=== PATIENT | female | born 1945 | race Caucasian/White ===

== ENCOUNTER 2022-12-11 09:42 | Outpatient (OUT) | payer MEDICARE, SELFPAY ==
--- NOTE | 2022-12-11 10:16 | XR_ITS ---
The [address] [address] Patient Name: TIFFANIE TRIVEDI MRN: [id number] date: 1945 Sex: F Assigned Patient Location: [facility] Current Patient Location: [facility] Accession/Order Number: [id number] Exam Date: 12/11/2022 10:20 Report Date: 12/12/2022 22:49 At the request of: ANÍBAL DAWN Procedure: XR thoracic spine 3V EXAM: XR thoracic spine 3V HISTORY: M54.6 COMPARISON: None. TECHNIQUE: AP and lateral views FINDINGS: Vertebral bodies are normal in height. There is disc space narrowing at mid and lower thoracic levels with early anterior and lateral osteophytosis. Angles are intact. XR/XR thoracic spine 3V IMPRESSION: Multilevel thoracic spondylosis. No evidence for acute fracture or traumatic malalignment. Electronically authenticated by: Damaris GUADARRAMA Date: 12/12/2022 22:49
== END 2022-12-11 09:43 | disposition home or self-care (01) ==
PROVIDERS: PCP Family Medicine; Visit Provider Family Medicine
DX: M47.814 Spondylosis without myelopathy or radiculopathy, thoracic region (principal); M54.6 Pain in thoracic spine
CPT/HCPCS: 72072

== ENCOUNTER 2022-12-18 10:34 | Emergency (ER) | payer MEDICARE, SELFPAY ==
[2022-12-18 10:47] VITALS: BP 174/65; PULSE 66; RESP 18; TEMP 37.1; O2SAT 98; BMI 19.4
[2022-12-18 11:28] LABS: Basophils Percent Auto 0.7 % (0.2-2.0); Eosinophils Percent Auto 0.2 % (0.9-7.0); Hematocrit 42.3 % (36.0-48.0); Hemoglobin 14.2 g/dL (12.0-16.0); Immature Granulocytes Abs Auto 0.02 10^3/uL (0.00-0.03); Immature Granulocytes Pct Auto 0.3 % (0.0-0.5); Lymphocytes Percent Auto 17.4 % (20.5-60.0); Mean Corpuscular HGB Conc 33.6 g/dL (29.9-35.2); Mean Corpuscular Hemoglobin 29.3 pg (26.7-34.0); Mean Corpuscular Volume 87.4 fL (81.0-99.0); Mean Platelet Volume 9.8 fL (9.5-13.5); Monocytes Absolute Auto 0.5 10^3/uL (0.3-0.8); Monocytes Percent Auto 8.2 % (1.7-12.0); Neutrophils Absolute Auto 4.2 10^3/uL (1.4-6.5); Neutrophils Percent Auto 73.2 % (43.0-75.0); Platelet Count 250 10^3/uL (150-450); Red Blood Count 4.84 10^6/uL (4.20-5.40); Red Cell Distribution Width 13.4 % (11.0-15.0); White Blood Count 5.8 10^3/uL (4.0-11.0)
[2022-12-18 11:58] LABS: Alanine Aminotransferase 21 U/L (14-59); Albumin Globulin Ratio 1.2; Albumin Level 4.2 g/dL (3.4-5.0); Alkaline Phosphatase 74 U/L (46-116); Aspartate Amino Transferase 12 U/L (15-37); BUN Creatinine Ratio 25.7; Bilirubin Total 0.4 mg/dL (0.2-1.0); Calcium 8.9 mg/dL (8.5-10.1); Carbon Dioxide 24.6 mmol/L (21.0-32.0); Chloride 99 mmol/L (98-107); Estimated GFR (African America >60 (>=60); Estimated GFR (Non-African Ame >60 (>=60); Globulin 3.6 g/dL; Glucose 148 mg/dL (74-106); Potassium 4.6 mmol/L (3.5-5.1); Sodium 133 mmol/L (136-145); Total Protein 7.8 g/dL (6.4-8.2)
[2022-12-18 13:00] LABS: Bilirubin Urine NEGATIVE (NEGATIVE); Blood Urine NEGATIVE (NEGATIVE); Clarity Urine CLEAR (CLEAR); Color Urine LT. YELLOW (YELLOW); Glucose Urine UA NEGATIVE (NEGATIVE); Ketones Urine NEGATIVE (NEGATIVE); Leukocyte Esterase Urine NEGATIVE (NEGATIVE); Nitrite Urine NEGATIVE (NEGATIVE); Protein Urine NEGATIVE (NEG/TRACE); Urobilinogen Urine 0.2 EU/dL (0.2-1.0); pH Urine 5.5 (5.0-9.0)
--- NOTE | 2022-12-18 13:11 | ED_ITS ---
HPI - General Adult General Chief complaint: Extremity Problem, Nontraumatic Stated complaint: TINGLING IN BOTH LEGS Time Seen by Provider: 12/18/22 12:45 Source: patient Mode of arrival: walk-in Limitations: no limitations History of Present Illness HPI narrative: Patient is a 77-year-old female who is presenting to the Emergency Room with chief complaint of intermittent muscle and calf cramping at nighttime when she sleeping along with restless leg syndrome. Patient is at bedside. Patient states for the past 2-3 weeks, she will have intermittent muscle cramping in her Nighttime Awakening Her up. Patient Gets up Often at Nighttime to Urinate, She Does Not Urinate during the Day. Patient Also Has Intermittent Restless Leg Syndrome at Nighttime As WellVital Signs reviewed and noted to be within normal limits. the patient is not hypoxic.Patient Has No Acute Injury. Patient States That She Does Not Check His Much Water in the Day She Needs to. Patient has no strokelike signs or symptoms. Patient has no chest pain or shortness of breath. Patient did see Dr. Thornton approximately one week ago, patient says that she mention the symptoms to Dr. Thornton, and Dr. Thornton did not mention any type of plantar testing that could be done for the symptoms. Pt says that she had a iron infusion about 4 or [address] Thornton noted that she had some hardening and changing of her nails. Patient is not had her iron levels checked since then. Education was done at bedside in the area of iron deficiency tingling to restless leg syndrome possibly. Patient had no fall, trauma. Patient is very active, no bowel pain, nausea, vomiting, diarrhea, or any acute complaints. Musculoskeletal: No evidence of deformity to the There is swelling. There is ecchymosis. No erythema is noted. DP and PT pulses are intact 2+. Normal sensation, normal capillary refill less than 2 seconds. There is no cyanosis or mottling noted. The patient has tenderness to . No tenderness noted to the 5th MT, midfoot, or proximal fibular area. There is no pain with calcaneal squeeze, achilles tendon is intact and no defect is palpated. No unilateral swelling. No pain to palpation to the posterior aspects of bilateral lower extremities. Neurological: alert and orient x4, normal sensory and motor observed. NIH 0 Psychiatric: Cooperative . All systems are negative except as noted/marked. All systems reviewed and ot herwise negative. . Nurses note and vital signs reviewed and patient is not hypoxic. General: The patient appears well and in no apparent distress. Patient is resting comfortably on cart. Patient is not toxic, lethargic, or listless Skin: Warm, dry, no pallor noted. There is no rash noted. No petechiae, purpura. Head: Normocephalic, atraumatic Eye: Normal conjunctiva, no drainage, EOMI. PERRL Ears, Nose, Mouth, and Throat: oral mucosa is moist. Nares patent. Mouth without vesicles. Cardiovascular: Regular Rate and Rhythm, no murmur, gallop, rub Respiratory: Patient is in no distress, no accessory muscle use, lungs are clear to auscultation, no wheezing, rales or rhonchi Back: non-tender, no CVA tenderness bilaterally to percussion. No CT LS midline pain GI: soft, no tenderness to palpation, no masses appreciated. No rebound, guarding, or rigidity noted. No flank pain bilateral, No distention Musculoskeletal: Patient has full range of motion of all of the extremities, no motor, sensory, or focal neurological deficit. See above muscle skeletal exam as well. Neurological: A&O x3, normal speech Psychiatric: Cooperative Related Data Home Medications Medication Instructions Recorded Confirmed aspirin 81 mg chewable tablet 81 mg PO DAILY 12/18/22 12/18/22 (Children's Aspirin) losartan 50 mg tablet 50 mg PO QDAY 12/18/22 12/18/22 Allergies Allergy/AdvReac Type Severity Reaction Status Date / Time No Known Drug Allergies Allergy Verified 12/18/22 10:47 Exam Constitutional Vital Signs, click to edit/add: Last Vital Signs Temp 98.7 F 12/18/22 10:47 Pulse 66 12/18/22 10:47 Resp 18 12/18/22 10:47 BP 174/65 H 12/18/22 10:47 Pulse Ox 98 12/18/22 10:47 O2 Del Method Room Air 12/18/22 10:47 Course Vital Signs Vital signs: Vital Signs Temperature 98.7 F 12/18/22 10:47 Pulse Rate 66 12/18/22 10:47 Respiratory Rate 18 12/18/22 10:47 Blood Pressure 174/65 H 12/18/22 10:47 Pulse Oximetry 98 12/18/22 10:47 Oxygen Delivery Method Room Air 12/18/22 10:47 Temperature 98.7 F 12/18/22 10:47 Pulse Rate 66 12/18/22 10:47 Respiratory Rate 18 12/18/22 10:47 Blood Pressure 174/65 H 12/18/22 10:47 Pulse Oximetry 98 12/18/22 10:47 Oxygen Delivery Method Room Air 12/18/22 10:47 Medical Decision Making MDM Narrative Medical decision making narrative: Patient was very thankful for time spent at bedside with education and dehydration, recommendations of using Powerade, Gatorade, and also stretching, exercise, and increasing water. Patient is aware that she needs to have her iron levels checked again by Dr. Thornton is an outpatient additional therapy if needed. Patient and are very thankful. Patient did leave before her discharge papers were given to her. I told the patient I be very clear in all the different things discussed at bedside on her discharge papers, for unknown reason she left without treatment being completed without having her discharge papers but she did verbally understand the plan as did her . Patient is a 30 taking multivitamins daily. Patient is aware of her sodium levels at 133 and will increase salt in Gatorade in her diet. Pt has limited salt for years and her diet. Lab Data Lab results reviewed: Yes I reviewed the patient's lab results Labs: Lab Results 12/18/22 12/18/22 Range/Units 11:12 12:50 WBC 5.8 (4.0-11.0) 10^3/uL RBC 4.84 (4.20-5.40) 10^6/uL Hgb 14.2 (12.0-16.0) g/dL Hct 42.3 (36.0-48.0) % MCV 87.4 (81.0-99.0) fL MCH 29.3 (26.7-34.0) pg MCHC 33.6 (29.9-35.2) g/dL RDW 13.4 (11.0-15.0) % Plt Count 250 (150-450) 10^3/uL MPV 9.8 (9.5-13.5) fL Neut % (Auto) 73.2 (43.0-75.0) % Lymph % (Auto) 17.4 L (20.5-60.0) % [place] % (Auto) 8.2 (1.7-12.0) % Eos % (Auto) 0.2 L (0.9-7.0) % Baso % (Auto) 0.7 (0.2-2.0) % Neut # (Auto) 4.2 (1.4-6.5) 10^3/uL Lymph # (Auto) 1.0 L (1.2-3.8) 10^3/uL [place] # (Auto) 0.5 (0.3-0.8) 10^3/uL Eos # (Auto) 0.0 (0.0-0.7) 10^3/uL Baso # (Auto) 0.0 (0.0-0.1) 10^3/uL Abs Immat Gran (auto) 0.02 (0.00-0.03) 10^3/uL Imm/Tot Granulo (auto) 0.3 (0.0-0.5) % Sodium 133 L (136-145) mmol/L Potassium 4.6 (3.5-5.1) mmol/L Chloride 99 (98-107) mmol/L Carbon Dioxide 24.6 (21.0-32.0) mmol/L Anion Gap 14.0 BUN 19.0 H (7.0-18.0) mg/dL Creatinine 0.74 (0.55-1.02) mg/dL Est GFR ( Amer) >60 (>=60) Est GFR (Non-Af Amer) >60 (>=60) BUN/Creatinine Ratio 25.7 Glucose 148 H (74-106) mg/dL Calcium 8.9 (8.5-10.1) mg/dL Total Bilirubin 0.4 (0.2-1.0) mg/dL AST 12 L (15-37) U/L ALT 21 (14-59) U/L Alkaline Phosphatase 74 (46-116) U/L Total Protein 7.8 (6.4-8.2) g/dL Albumin 4.2 (3.4-5.0) g/dL Globulin 3.6 g/dL Albumin/Globulin Ratio 1.2 Urine Color Lt. yellow (YELLOW) Urine Clarity Clear (CLEAR) Urine pH 5.5 (5.0-9.0) Ur Specific [place] 1.010 (1.005-1.025) Urine Protein Negative (NEG/TRACE) mg/dL Urine Glucose (UA) Negative (NEGATIVE) mg/dL Urine Ketones Negative (NEGATIVE) mg/dL Urine Occult Blood Negative (NEGATIVE) Urine Nitrite Negative (NEGATIVE) Urine Bilirubin Negative (NEGATIVE) Urine Urobilinogen 0.2 (0.2-1.0) EU/dL Ur Leukocyte Esterase Negative (NEGATIVE) Urine RBC None seen (0-2) #/HPF Urine WBC None seen (NONE SEEN) #/HPF Ur Squamous Epith Cells Few A (NONE/RARE) #/LPF Urine Crystals None seen (None Seen) #/HPF Urine Bacteria None seen (NONE SEEN) #/HPF Urine Casts None seen (NONE SEEN) #/LPF Urine Mucus None seen (NONE SEEN) Ur Culture Indicated? No Discharge Plan Discharge Chief Complaint: Extremity Problem, Nontraumatic Clinical Impression: Hyponatremia, Cramps, muscle, general, Restless leg syndrome Patient Disposition: Home, Self-Care Condition: Good Prescriptions / Home Meds: No Action losartan 50 mg tablet 50 mg PO QDAY aspirin [Children's Aspirin] 81 mg tablet,chewable 81 mg PO DAILY Instructions: Hyponatremia (ED), Leg Cramps (ED), Muscle Cramp (ED), Restless Legs Syndrome (ED) Additional Instructions: Use [id number] Gatorade or Powerade daily as discussed, along with increasing fluids (water) Have your iron levels checked again by Dr. Thornton .Call Tuesday to make an appointment with Dr. Thornton for follow-up from today's Emergency Room visit. Calf Stretching exercises at home as discussed at bedside. Stand Alone Forms: Portal Instructions Referrals: Barb Thornton MD [Primary Care Provider] - 1 week Discharge Date/Time: 12/18/22 13:00
[2022-12-18 13:21] LABS: Bacteria Urine NONE SEEN #/HPF (NONE SEEN); Mucus Urine NONE SEEN (NONE SEEN); RBC Urine NONE SEEN #/HPF (0-2); Squamous Epithelial Cell Urine FEW #/LPF (NONE/RARE); WBC Urine NONE SEEN #/HPF (NONE SEEN)
[2022-12-18 13:22] LABS: Cast Seen? NONE SEEN #/LPF (NONE SEEN); Crystals Seen? None Seen #/HPF (None Seen); Urine Culture Indicated NO
== END 2022-12-18 13:00 | disposition home or self-care (01) ==
PROVIDERS: Emergency Provider Emergency Medicine; PCP Family Medicine
DX: E87.1 Hypo-osmolality and hyponatremia (principal); R25.2 Cramp and spasm; G25.81 Restless legs syndrome; Z79.82 Long term (current) use of aspirin; Z79.899 Other long term (current) drug therapy
CPT/HCPCS: 36415; 80053; 81001; 85025; 99284

== ENCOUNTER 2022-12-22 10:35 | Outpatient (OUT) | payer MEDICARE, SELFPAY ==
[2022-12-22 11:00] LABS: Basophils Absolute Auto 0.1 10^3/uL (0.0-0.1); Basophils Percent Auto 0.8 % (0.2-2.0); Eosinophils Absolute Auto 0.1 10^3/uL (0.0-0.7); Eosinophils Percent Auto 0.8 % (0.9-7.0); Hematocrit 40.5 % (36.0-48.0); Hemoglobin 13.2 g/dL (12.0-16.0); Immature Granulocytes Abs Auto 0.02 10^3/uL (0.00-0.03); Immature Granulocytes Pct Auto 0.3 % (0.0-0.5); Lymphocytes Absolute Auto 1.2 10^3/uL (1.2-3.8); Lymphocytes Percent Auto 17.9 % (20.5-60.0); Mean Corpuscular HGB Conc 32.6 g/dL (29.9-35.2); Mean Corpuscular Hemoglobin 29.3 pg (26.7-34.0); Mean Corpuscular Volume 89.8 fL (81.0-99.0); Mean Platelet Volume 9.6 fL (9.5-13.5); Monocytes Absolute Auto 0.5 10^3/uL (0.3-0.8); Monocytes Percent Auto 7.7 % (1.7-12.0); Neutrophils Absolute Auto 4.7 10^3/uL (1.4-6.5); Neutrophils Percent Auto 72.5 % (43.0-75.0); Platelet Count 249 10^3/uL (150-450); Red Blood Count 4.51 10^6/uL (4.20-5.40); Red Cell Distribution Width 13.6 % (11.0-15.0); White Blood Count 6.5 10^3/uL (4.0-11.0)
[2022-12-22 11:45] LABS: Anion Gap 12.2; BUN Creatinine Ratio 18.1; Calcium 8.8 mg/dL (8.5-10.1); Carbon Dioxide 27.5 mmol/L (21.0-32.0); Chloride 99 mmol/L (98-107); Estimated GFR (African America >60 (>=60); Estimated GFR (Non-African Ame >60 (>=60); Glucose 119 mg/dL (74-106); Magnesium 2.2 mg/dL (1.8-2.4); Potassium 4.7 mmol/L (3.5-5.1); Sodium 134 mmol/L (136-145)
== END 2022-12-22 10:36 | disposition home or self-care (01) ==
LOC: LAB 10:36
PROVIDERS: PCP Family Medicine; Visit Provider Family Medicine
DX: R20.2 Paresthesia of skin (principal); D50.8 Other iron deficiency anemias
CPT/HCPCS: 36415; 80048; 82728; 83735; 85025

== ENCOUNTER 2023-02-10 11:17 | Outpatient (OUT) | payer MEDICARE, SELFPAY ==
[2023-02-10 11:51] LABS: SARS-CoV-2 Ag NEGATIVE (NEGATIVE)
[2023-02-10 14:40] LABS: SARS-CoV-2 NAA NOT DETECTED (NOT DETECTE)
== END 2023-02-10 11:18 | disposition home or self-care (01) ==
PROVIDERS: PCP Family Medicine; Visit Provider Family Medicine
DX: Z20.822 Contact with and (suspected) exposure to COVID-19 (principal)
CPT/HCPCS: 86480; 86706; 86735; 86762; 86765; 86787; 87635; 87811; U0003

== ENCOUNTER 2023-07-13 10:20 | Outpatient (OUT) | payer MEDICARE, SELFPAY ==
--- NOTE | 2023-07-13 10:35 | XR_ITS ---
The [address] [address] Patient Name: TIFFANIE TRIVEDI MRN: [id number] date: 1945 Sex: F Assigned Patient Location: [facility] Current Patient Location: [facility] Accession/Order Number: [id number] Exam Date: 07/13/2023 10:28 Report Date: 07/13/2023 10:59 At the request of: ANÍBAL DAWN Procedure: XR chest 2V EXAM: XR chest 2V HISTORY: bronchitis j40 COMPARISON: None. TECHNIQUE: AP view of the chest. FINDINGS: The cardiomediastinal silhouette is normal. The lungs are clear. There is no pneumothorax. No pleural effusion is noted. The osseous structures are intact. XR/XR chest 2V IMPRESSION: No acute cardiopulmonary process. Electronically authenticated by: DEBORAH URIAS Date: 07/13/2023 10:59
== END 2023-07-13 10:21 | disposition home or self-care (01) ==
PROVIDERS: PCP Family Medicine; Visit Provider Family Medicine
DX: J40 Bronchitis, not specified as acute or chronic (principal)
CPT/HCPCS: 71046

== ENCOUNTER 2023-07-24 09:54 | Emergency (ER) | payer MEDICARE, SELFPAY ==
[2023-07-24] VITALS (14 sets, daily range): BP systolic 180–207; BP diastolic 64–79; PULSE 48–661; RESP 11–23; TEMP 36.9; O2SAT 99–100; BMI 27.8
--- OUTSIDE RECORDS SUMMARY | 2023-07-24 10:01 | XMS_ITS | CCD ---
Author Name Unknown Address [address] [place] [address] Organization [facility] Care Team Providers Care Hand Tool Filer Name Role Phone Barb Thornton Primary Care Provider NEREYDA, DR BARB Lubin Admitting Unavailable THORNTON, DR BARB Lubin Attending Unavailable THORNTON, DR BARB Lubin Primary Care Unavailable THORNTON, DR BARB Lubin Consulting Unavailable REQUEST, DR WOODWARD LISTED Admitting Unavaila ble REQUEST, DR WOODWARD LISTED Attending Unavaila ble THORNTON, DR BARB Lubin Primary Care Unavailable THORNTON, DR BARB Lubin Admitting Unavailable THORNTON, DR BARB Lubin Attending Unavailable THORNTON, DR BARB Lubin Primary Care Unavailable REQUEST, DR WOODWARD LISTED Consulting Unavaila ble THORNTON, DR BARB Lubin Admitting Unavailable THORNTON, DR BARB Lubin Attending Unavailable THORNTON, DR BARB Lubin Primary Care Unavailable THORNTON, DR BARB Lubin Consulting Unavailable THORNTON, DR BARB Lubin Admitting Unavailable THORNTON, DR BARB Lubin Attending Unavailable THORNTON, DR BARB Lubin Primary Care Unavailable THORNTON, DR BARB Lubin Consulting Unavailable OLVIN, BERKLEY Consulting Unavailable Thornton, Barb Unavailable Allergies Allergy Classification Reported Allergen(s) Allergy Type Date of Onset Reaction(s) Facility (1 source) Penicillins Drug Allergy 0 Rash [facility] (1 source) Penicillin Drug Allergy [facility] (10 sources) Simvastatin Drug Allergy 4 [address], [facility] (5 sources) Penicillin V Drug Allergy 4 Unknown, [facility] Medications Current Medications Medication Drug Class(es) Dates Sig (Normalized) Sig (Original) Ascorbic Acid (3 sources) Vitamin C Vitamin C Active aspirin 81 mg oral tablet (6 sources) Platelet Aggregation Inhibitor, Nonsteroidal Anti-inflammatory Drug take 1 tablet by mouth once daily Aspir-Low 81 MG 1 tablet Orally Once a day Active azithromycin 250 mg oral tablet (3 sources) Macrolide Antimicrobial Start: 06-08-2023 Azithromycin 250 MG as directed Orally 2 tabs po today, then 1 tab daily x 4 more days for 5 May, Active Start: 07-22-2022 Azithromycin 2 50 MG as directed Orally 2 tabs po today, then 1 tab daily x 4 more days for 5 Jun, Active ciprofloxacin 500 mg oral tablet (1 source) Quinolone Antimicrobial take 1 tablet by mouth every twelve hours Ciprofloxacin HCl 500 MG 1 tablet Orally every 12 hrs for 7 days Active losartan potassium 50 mg oral tablet (4 sources) Angiotensin 2 Receptor Radhika Start: 2022 take 1 tablet by mouth every twenty-four hours Losartan Potassium 50 MG 1 tablet Orally Once a day for 30 days Oct, Active methylPREDNISolone 4 mg oral tablet (1 source) Corticosteroid Start: 2023 methylPREDNISolone 4 MG as directed Orally for 6 days May, Active Multi Complete - (9 sources) Multi Complete - as directed Orally Active vitamin e 90 mg oral tablet (2 sources) take 1 tablet by mouth every twenty-four hours Vitamin E 200 UNIT 1 tablet Orally Once a day Active Vitamin E 200 UNIT (2 sources) take 1 tablet by mouth once daily Vitamin E 200 UNIT 1 tablet Orally Once a day Active Problems Active Problems Problem Classification Problem Date Documented Da te Episodic/Chronic Abdominal pain (14 sources) Left lower quadrant pain; Translations: [Left lower quadrant pain] Onset: 04-16-2022 Episodic Chronic obstructive pulmonary disease and bronchiectasis (3 sources) Bronchitis, not specified as acute or chronic Episodic Conditions associated with dizziness or vertigo (10 sources) Benign paroxysmal positional vertigo; Translations: [Benign paroxysmal vertigo, unspecified ear] Episodic Deficiency and other anemia (10 sources) Pernicious anemia; Translations: [Vitamin B12 deficiency anemia due to intrinsic factor deficiency] Episodic Deficiency and other anemia (1 source) Anemia; Translations: [Anemia, unspecified] Episodic Deficiency and other anemia (4 sources) Iron deficiency anemia; Translations: [Other iron deficiency anemias] Episodic Deficiency and other anemia (1 source) Other iron deficiency anemias Episodic Disorders of lipid metabolism (11 sources) Mixed hyperlipidemia; Translations: [Mixed hyperlipidemia] Onset: 06-12-2021 Chronic Essential hypertension (16 sources) Essential (primary) hypertension; Translations: [Essential hypertension] Onset: 11-19-2021 Chronic Immunizations and screening for infectious disease (1 source) Vaccination given; Translations: [Encounter for immunization] Episodic Nonspecific chest pain (1 source) Chest pain; Translations: [Chest pain, unspecified] Episodic Other circulatory disease (1 source) Elevated blood-pressure reading without diagnosis of hypertension; Translations: [Elevated blood-pressure reading, without diagnosis of hypertension] Episodic Other ear and sense organ disorders (1 source) Hearing loss; Translations: [Unspecified hearing loss, bilateral] Chronic Other ear and sense organ disorders (2 sources) Impacted cerumen, bilateral Episodic Other injuries and conditions due to external causes (1 source) History of fall; Translations: [History of falling] Episodic Other nervous system disorders (4 sources) Paresthesia of lower extremity; Translations: [Paresthesia of skin] Episodic Other skin disorders (1 source) Dystrophia unguium; Translations: [Nail dystrophy] Episodic Residual codes; unclassified (1 source) Immunization refused ; Translations: [Immunization not carried out because of patient refusal] Episodic Spondylosis; intervertebral disc disorders; other back problems (1 source) Pain in thoracic spine Episodic Past or Other Problems Problem Classification Problem Date Documented Da te Episodic/Chronic Deficiency and other anemia (5 sources) Vitamin B12 deficiency anemia due to intrinsic factor deficiency; Translations: [VITAMIN B12 DEF ANEMIA DUE IF DEF] Onset: 06-10-2021 Episodic Results Test Name Value Interpretation Reference Range Facil ity US PELVIS TRANSVAGon 022 US PELVIS TRANSVAG EXAM: US PELVIS TRANSVAG HISTORY: Left lower quadrant pain COMPARISON: None. TECHNIQUE: Transvaginal grayscale ultrasound of the pelvis was performed. Color and spectral Doppler was utilized as needed. FINDINGS: The uterus is retroverted measures 5.1 x 3.2 x 2.1 CM. Endometrium measures 3.8 mm. A 2 x 1.2 x 1.2 cm echogenic mass in the mid uterus may relate to fibroid. A 0.8 cm nabothian cyst in the cervix. Bilateral ovaries are normal in size and appearance. Right ovary is 1.8 x 2 x 1.5 CM. Vascular flow demonstrated to the ovary with RI of 0.5. Left ovary is 1.4 x 1.1 x 1.1 CM. Vascular flow demonstrated to the ovary with RI of 0.5. No ovarian/adnexal mass or significant free pelvic fluid is identified. IMPRESSION: No acute sonographic abnormality. A 2 cm echogenic mass in the mid uterus could relate to fibroid. Electronically authenticated by: BERKLEY BAH Date: 2022-04-19 00:32 Normal [facility] CBC AUTO DIFFon 04-16-2022 BASO # 0.1 103/ul Normal 0.0-0.1 [facility] Comment on above: Performed By: #### D ATCBC #### [facility] [address] [address] [address] Sorin Yang Basophils/100 WBC (Bld) 1.1 % Normal 0.2-2.0 [facility] Comment on above: Performed By: #### D ATCBC #### [facility] [address] [place] [address] Dr. Sorin Yang EO # 0.1 103/ul Normal 0.0-0.7 [facility] Comment on above: Performed By: #### D ATCBC #### [facility] [address] [address] [address] Sorin Yang Eosinophils/100 WBC (Bld) 2.3 % Normal 0.9-7.0 [facility] Comment on above: Performed By: #### D ATCBC #### [facility] [address] [place] [address] Dr. Sorin Yang Erythrocyte distribution width (RBC) [Ratio] 13.6 % Normal 11.0-15.0 [facility] Comment on above: Performed By: #### D ATCBC #### [facility] [address] [place] [address] Dr. Sorin Yang Hematocrit (Bld) [Volume fraction] 45.2 % Normal 36.0-48.0 [facility] Comment on above: Performed By: #### D ATCBC #### [facility] [address] [place] [address] Dr. Sorin Yang Hemoglobin (Bld) [Mass/Vol] 14.6 g/dL Normal 12.0-16.0 [facility] Comment on above: Performed By: #### D ATCBC #### [facility] [address] [address] [address] Sorin Yang IG # 0.02 10e3/ul Normal 0.00-0.03 [facility] Comment on above: Performed By: #### D ATCBC #### [facility] [address] [place] [address] Dr. Sorin Yang IG % 0.4 % Normal 0.0-0.5 [facility] Comment on above: Performed By: #### D ATCBC #### [facility] [address] [place] [address] Dr. Sorin Yang LYMPH # 1.9 103/ul Normal 1.2-3.8 [facility] Comment on above: Performed By: #### D ATCBC #### [facility] [address] [place] [address] Dr. Sorin Yang Lymphocytes/100 WBC (Bld) 33.9 % Normal 20.5-60.0 [facility] Comment on above: Performed By: #### D ATCBC #### [facility] [address] [place] [address] Dr. Sorin Yang MCH (RBC) [Entitic mass] 29.0 pg Normal 26.7-34.0 [facility] Comment on above: Performed By: #### D ATCBC #### [facility] [address] [place] [address] Dr. Sorin Yang MCHC (RBC) [Mass/Vol] 32.3 g/dL Normal 29.9-35.2 [facility] Comment on above: Performed By: #### D ATCBC #### [facility] [address] [place] [address] Dr. Sorin Yang MCV (RBC) [Entitic vol] 89.7 fL Normal 81.0-99.0 [facility] Comment on above: Performed By: #### D ATCBC #### [facility] [address] [place] [address] Dr. Sorin Yang MONO # 0.4 103/ul Normal 0.3-0.8 [facility] Comment on above: Performed By: #### D ATCBC #### [facility] [address] [address] [address] Sorin Yang Monocytes/100 WBC (Bld) 7.5 % Normal 1.7-12.0 [facility] Comment on above: Performed By: #### D ATCBC #### [facility] [address] [address] [address] Sorin Yang NEUT # 3.1 103/ul Normal 1.4-6.5 [facility] Comment on above: Performed By: #### D ATCBC #### [facility] [address] [address] [address] Sorin Yang Neutrophils/100 WBC (Bld) 54.8 % Normal 43.0-75.0 [facility] Comment on above: Performed By: #### D ATCBC #### [facility] [address] [address] [address] Sorin Yang Platelet mean volume (Bld) [Entitic vol] 10.0 fL Normal 9.5-13.5 [facility] Comment on above: Performed By: #### D ATCBC #### [facility] [address] [address] [address] Sorin Yang PLT 253 103/ul Normal 150-450 [facility] Comment on above: Performed By: #### D ATCBC #### [facility] [address] [address] [address] Sorin Yang RBC 5.04 106/ul Normal 4.20-5.40 [facility] Comment on above: Performed By: #### D ATCBC #### [facility] [address] [address] [address] Sorin Yang WBC 5.6 103/ul Normal 4.0-11.0 [facility] Comment on above: Performed By: #### D ATCBC #### [facility] [address] [address] [address] Sorin Yang SOUTH- BMP WITH LIPIDon 2021 Anion gap [Moles/Vol] 8.7 mmol/L Normal [facility] Comment on above: Performed By: #### D ATBMP ####[facility] [address] [id number]. Sorin Yang Calcium [Mass/Vol] 9.5 mg/dL Normal 8.5-10.1 [facility] Comment on above: Performed By: #### D ATBMP ####[facility] [address] [place], [place] [address]Lm. Sorin Yang Chloride [Moles/Vol] 102 mmol/L Normal 98-107 [facility] Comment on above: Performed By: #### D ATBMP ####[facility] [address] [id number]. Sorin Yang Cholesterol [Mass/Vol] 251 mg/dL Critically high <=200 [facility] Comment on above: Performed By: #### D ATBMP ####[facility] [address] [id number]. Sorin Yang Cholesterol in HDL [Mass/Vol] 61 mg/dL Critically high 40-60 [facility] Comment on above: Performed By: #### D ATBMP ####[facility] [address] [id number]. Sorin Yang Cholesterol in LDL [Mass/Vol] 158.4 mg/dL Normal [facility] Comment on above: Performed By: #### D ATBMP ####[facility] [address] [id number]. Sorin Yang CO2 [Moles/Vol] 30.7 mmol/L Normal 21.0-32.0 [facility] Comment on above: Performed By: #### D ATBMP ####[facility] [address] [id number]. Sorin Yang Creatinine [Mass/Vol] 0.80 mg/dL Normal 0.55-1.02 [facility] Comment on above: Performed By: #### D ATBMP ####[facility] [address] [id number]. Sorin Yang EGFR-AF CYPRIOT >60 Normal >=60 [facility] Comment on above: Performed By: #### D ATBMP ####[facility] [address] [id number]. Sorin Yang EGFR-NON AF CYPRIOT >60 Normal >=60 [facility] Comment on above: Performed By: #### D ATBMP ####[facility] [address] [id number]. Sorin Yang Glucose [Mass/Vol] 111 mg/dL Critically high 74-106 T [facility] Comment on above: Performed By: #### D ATBMP ####[facility] [address] [id number]. Sorin Yang HDL NORMAL > or = 60 mg/dl - LOW CARDIOVASCULAR RISK <40 mg/dl - HIGH CARDIOVASCULAR RISK Normal [facility] Comment on above: Performed By: #### D ATBMP ####[facility] [address] [address]Dr. Sorin Yang LDL CALC NORMAL SEE BELOW Normal [facility] Comment on above: Result Comment: <100 mg/dl OPTIMAL 100 - 129 mg/dl NEAR OR ABOVE OPTIMAL 130 - 159 mg/dl BORDERLINE HIGH 160 - 189 mg/dl HIGH >190 mg/dl VERY HIGH Performed By: #### D ATBMP ####[facility] [address] [place], [place] [address]Dr. Sorin Yang Potassium [Moles/Vol] 4.4 mmol/L Normal 3.5-5.1 [facility] Comment on above: Performed By: #### D ATBMP ####[facility] [address] [address]Dr. Sorin Yang Sodium [Moles/Vol] 137 mmol/L Normal 136-145 [facility] Comment on above: Performed By: #### D ATBMP ####[facility] [address] [address]Dr. Sorin Yang Triglyceride [Mass/Vol] 158 mg/dL Critically high <=150 [facility] Comment on above: Performed By: #### D ATBMP ####[facility] [address] [id number]. Sorin Yang Urea nitrogen [Mass/Vol] 18.0 mg/dL Normal 7.0-18.0 [facility] Comment on above: Performed By: #### D ATP ####[facility] [address] [id number]. Sorin Yang Urea nitrogen/Creatinine [Mass ratio] 22.5 mg/mg Normal [facility] Comment on above: Performed By: #### D ATBMP ####[facility] [address] [address]Dr. Sorin Yang VLDL CALC 31.6 mg/dL Normal [facility] Comment on above: Performed By: #### D ATP ####[facility] [address] [id number]. Sorin Yang CBC AUTO DIFFon 11-19-2021 BASO # 0.0 103/ul Normal 0.0-0.1 [facility] Comment on above: Performed By: #### C BC #### [facility] [address] [place] [address] Dr. Sorin Yang Basophils/100 WBC (Bld) 0.7 % Normal 0.2-2.0 [facility] Comment on above: Performed By: #### C BC #### [facility] [address] [place] [address] Dr. Sorin Yang EO # 0.1 103/ul Normal 0.0-0.7 [facility] Comment on above: Performed By: #### C BC #### [facility] [address] [address] [address] Sorin Yang Eosinophils/100 WBC (Bld) 1.7 % Normal 0.9-7.0 [facility] Comment on above: Performed By: #### C BC #### [facility] [address] [address] [address] Sorin Yang Erythrocyte distribution width (RBC) [Ratio] 13.4 % Normal 11.0-15.0 [facility] Comment on above: Performed By: #### C BC #### [facility] [address] [address] [address] Sorin Yang Hematocrit (Bld) [Volume fraction] 40.7 % Normal 36.0-48.0 [facility] Comment on above: Performed By: #### C BC #### [facility] [address] [place] [address] Dr. Sorin Yang Hemoglobin (Bld) [Mass/Vol] 13.2 g/dL Normal 12.0-16.0 [facility] Comment on above: Performed By: #### C BC #### [facility] [address] [place] [address] Dr. Sorin Yang IG # 0.01 10e3/ul Normal 0.00-0.03 [facility] Comment on above: Performed By: #### C BC #### [facility] [address] [place] [address] Dr. Sorin Yang IG % 0.2 % Normal 0.0-0.5 [facility] Comment on above: Performed By: #### C BC #### [facility] [address] [place] [address] Dr. Sorin Yang LYMPH # 1.8 103/ul Normal 1.2-3.8 [facility] Comment on above: Performed By: #### C BC #### [facility] [address] [place] [address] Dr. Sorin Yang Lymphocytes/100 WBC (Bld) 34.0 % Normal 20.5-60.0 [facility] Comment on above: Performed By: #### C BC #### [facility] [address] [place] [address] Dr. Sorin Yang MANUAL DIFF REQ NO Normal [facility] Comment on above: Performed By: #### C BC #### [facility] [address] [place] [address] Dr. Sorin Yang MCH (RBC) [Entitic mass] 29.5 pg Normal 26.7-34.0 [facility] Comment on above: Performed By: #### C BC #### [facility] [address] [place] [address] Dr. Sorin Yang MCHC (RBC) [Mass/Vol] 32.4 g/dL Normal 29.9-35.2 [facility] Comment on above: Performed By: #### C BC #### [facility] [address] [address] [address] Sorin Yang MCV (RBC) [Entitic vol] 91.1 fL Normal 81.0-99.0 [facility] Comment on above: Performed By: #### C BC #### [facility] [address] [address] [address] Sorin Yang MONO # 0.4 103/ul Normal 0.3-0.8 [facility] Comment on above: Performed By: #### C BC #### [facility] [address] [address] [address] Sorin Yang Monocytes/100 WBC (Bld) 8.2 % Normal 1.7-12.0 [facility] Comment on above: Performed By: #### C BC #### [facility] [address] [place] [address] Dr. Sorin Yang NEUT # 3.0 103/ul Normal 1.4-6.5 [facility] Comment on above: Performed By: #### C BC #### [facility] [address] [place] [address] Dr. Sorin Yang Neutrophils/100 WBC (Bld) 55.2 % Normal 43.0-75.0 [facility] Comment on above: Performed By: #### C BC #### [facility] [address] [address] [address] Sorin Yang Platelet mean volume (Bld) [Entitic vol] 10.3 fL Normal 9.5-13.5 [facility] Comment on above: Performed By: #### C BC #### [facility] [address] [address] [address] Sorin Yang PLT 207 103/ul Normal 150-450 [facility] Comment on above: Performed By: #### C BC #### [facility] [address] [address] [address] Sorin Yang RBC 4.47 106/ul Normal 4.20-5.40 [facility] Comment on above: Performed By: #### C BC #### [facility] [address] [address] [address] Sorin Yang WBC 5.4 103/ul Normal 4.0-11.0 [facility] Comment on above: Performed By: #### C BC #### [facility] [address] [address] [address] Sorin Yang PROF CHEM 8 (BAS METB)on Anion gap [Moles/Vol] 10.7 mmol/L Normal [facility] Comment on above: Performed By: #### B MP #### [facility] [address] [address] [address] Sorin Yang Calcium [Mass/Vol] 8.4 mg/dL Critically low 8.5-10.1 [facility] Comment on above: Performed By: #### B MP #### [facility] [address] [place] [address] Dr. Sorin Yang Chloride [Moles/Vol] 108 mmol/L Critically high 98-107 [facility] Comment on above: Performed By: #### B MP #### [facility] [address] [address] [address] Sorin Yang CO2 [Moles/Vol] 28.4 mmol/L Normal 21.0-32.0 [facility] Comment on above: Performed By: #### B MP #### [facility] [address] [place] [address] Dr. Sorin Yang Creatinine [Mass/Vol] 0.80 mg/dL Normal 0.55-1.02 [facility] Comment on above: Performed By: #### B MP #### [facility] [address] [place] [address] Dr. Sorin Yang EGFR-AF CYPRIOT >60 Normal >=60 [facility] Comment on above: Performed By: #### B MP #### [facility] [address] [address] [address] Sorin Yang EGFR-NON AF CYPRIOT >60 Normal >=60 [facility] Comment on above: Performed By: #### B MP #### [facility] [address] [address] [address] Sorin Yang Glucose [Mass/Vol] 117 mg/dL Critically high 74-106 T [facility] Comment on above: Performed By: #### B MP #### [facility] [address] [place] [address] Dr. Sorin Yang Potassium [Moles/Vol] 4.1 mmol/L Normal 3.5-5.1 [facility] Comment on above: Performed By: #### B MP #### [facility] [address] [place] [address] Dr. Sorin Yang Sodium [Moles/Vol] 143 mmol/L Normal 136-145 [facility] Comment on above: Performed By: #### B MP #### [facility] [address] [place] [address] Dr. Sorin Yang Urea nitrogen [Mass/Vol] 24.0 mg/dL Critically high 7.0-18.0 [facility] Comment on above: Performed By: #### B MP #### [facility] [address] [place] [address] Dr. Sorin Yagn Urea nitrogen/Creatinine [Mass ratio] 30.0 mg/mg Normal [facility] Comment on above: Performed By: #### B MP #### [facility] [address] [place] [address] Dr. Sorin Yang VITAMIN B12on 11-19-2021 Cobalamin (Vitamin B12) [Mass/Vol] 500.0 pg/mL Normal 193.0-986.0 [facility] Comment on above: Performed By: #### V ITB12 #### [facility] [address] [place] [address] Dr. Sorin Yang FERRITINon 06-11-2021 Ferritin [Mass/Vol] 141 ng/mL Normal 15-150 [facility] Comment on above: Performed By: #### F ERRLC #### [facility] [address] [place] [address] Dr. Sorin Yang VITAMIN B12on 06-11-2021 Cobalamin (Vitamin B12) [Mass/Vol] 1297 pg/mL Critically high 232-1245 [facility] Comment on above: Performed By: #### V B12LC #### [facility] [address] [place] [address] Dr. Sorin Yang CBC AUTO DIFFon 06-10-2021 BASO # 0.0 103/ul Normal 0.0-0.1 [facility] Comment on above: Performed By: #### C BC #### [facility] [address] [place] [address] Dr. Sorin Yang Basophils/100 WBC (Bld) 0.7 % Normal 0.2-2.0 [facility] Comment on above: Performed By: #### C BC #### [facility] [address] [place] [address] Dr. Sorin Yang EO # 0.1 103/ul Normal 0.0-0.7 [facility] Comment on above: Performed By: #### C BC #### [facility] [address] [place] [address] Dr. Sorin Yang Eosinophils/100 WBC (Bld) 1.6 % Normal 0.9-7.0 [facility] Comment on above: Performed By: #### C BC #### [facility] [address] [place] [address] Dr. Sorin Yang Erythrocyte distribution width (RBC) [Ratio] 13.2 % Normal 11.0-15.0 [facility] Comment on above: Performed By: #### C BC #### [facility] [address] [place] [address] Dr. Sorin Yang Hematocrit (Bld) [Volume fraction] 43.5 % Normal 36.0-48.0 [facility] Comment on above: Performed By: #### C BC #### [facility] [address] [place] [address] Dr. Sorin Yang Hemoglobin (Bld) [Mass/Vol] 14.2 g/dL Normal 12.0-16.0 [facility] Comment on above: Performed By: #### C BC #### [facility] [address] [place] [address] Dr. Sorin Yang IG # 0.02 10e3/ul Normal 0.00-0.03 [facility] Comment on above: Performed By: #### C BC #### [facility] [address] [place] [address] Dr. Sorin Yang IG % 0.3 % Normal 0.0-0.5 [facility] Comment on above: Performed By: #### C BC #### [facility] [address] [place] [address] Dr. Sorin Yang LYMPH # 2.1 103/ul Normal 1.2-3.8 [facility] Comment on above: Performed By: #### C BC #### [facility] [address] [place] [address] Dr. Sorin Yang Lymphocytes/100 WBC (Bld) 36.6 % Normal 20.5-60.0 [facility] Comment on above: Performed By: #### C BC #### [facility] [address] [place] [address] Dr. Sorin Yang MANUAL DIFF REQ NO Normal [facility] Comment on above: Performed By: #### C BC #### [facility] [address] [place] [address] Dr. Sorin Yang MCH (RBC) [Entitic mass] 29.6 pg Normal 26.7-34.0 [facility] Comment on above: Performed By: #### C BC #### [facility] [address] [place] [address] Dr. Sorin Yang MCHC (RBC) [Mass/Vol] 32.6 g/dL Normal 29.9-35.2 [facility] Comment on above: Performed By: #### C BC #### [facility] [address] [place] [address] Dr. Sorin Yang MCV (RBC) [Entitic vol] 90.6 fL Normal 81.0-99.0 [facility] Comment on above: Performed By: #### C BC #### [facility] [address] [place] [address] Dr. Sorin Yang MONO # 0.5 103/ul Normal 0.3-0.8 [facility] Comment on above: Performed By: #### C BC #### [facility] [address] [address] [address] Sorin Yang Monocytes/100 WBC (Bld) 8.5 % Normal 1.7-12.0 [facility] Comment on above: Performed By: #### C BC #### [facility] [address] [address] [address] Sorin Yang NEUT # 3.0 103/ul Normal 1.4-6.5 [facility] Comment on above: Performed By: #### C BC #### [facility] [address] [address] [address] Sorin Yang Neutrophils/100 WBC (Bld) 52.3 % Normal 43.0-75.0 [facility] Comment on above: Performed By: #### C BC #### [facility] [address] [place] [address] Dr. Sorin Yang Platelet mean volume (Bld) [Entitic vol] 9.8 fL Normal 9.5-13.5 [facility] Comment on above: Performed By: #### C BC #### [facility] [address] [place] [address] Dr. Sorin Yang PLT 274 103/ul Normal 150-450 [facility] Comment on above: Performed By: #### C BC #### [facility] [address] [place] [address] Dr. Sorin Yang RBC 4.80 106/ul Normal 4.20-5.40 [facility] Comment on above: Performed By: #### C BC #### [facility] [address] [place] [address] Dr. Sorin Yang WBC 5.8 103/ul Normal 4.0-11.0 [facility] Comment on above: Performed By: #### C BC #### [facility] [address] [place] [address] Dr. Sorin aYng LIPID PROFILEon 06-10-2021 CHOL-HDL RATIO NORM SEE BELOW Normal [facility] Comment on above: Result Comment: 3.3 - 4.4 LOW RISK 4.4 - 7.1 AVERAGE RISK 7.1 - 11.0 MODERATE RISK >11.0 HIGH RISK Performed By: #### L IPID, CMP #### [facility] [address] [place] [address] Dr. Sorin Yang Cholesterol [Mass/Vol] 234 mg/dL Critically high <=200 [facility] Comment on above: Performed By: #### L IPID, CMP #### [facility] [address] [place] [address] Dr. Sorin Yang Cholesterol in HDL [Mass/Vol] 47 mg/dL Normal [facility] Comment on above: Performed By: #### L IPID, CMP #### [facility] [address] [place] [address] Dr. Sorin Yang Cholesterol in LDL [Mass/Vol] 153.0 mg/dL Normal [facility] Comment on above: Performed By: #### L IPID, CMP #### [facility] [address] [place] [address] Dr. Sorin Yang Cholesterol.total/C holesterol in HDL [Mass ratio] 5.0 {ratio} Normal [facility] Comment on above: Performed By: #### L IPID, CMP #### [facility] [address] [place] [address] Dr. Sorin Yang HDL NORMAL > or = 60 mg/dl - LOW CARDIOVASCULAR RISK <40 mg/dl - HIGH CARDIOVASCULAR RISK Normal [facility] Comment on above: Performed By: #### L IPID, CMP #### [facility] [address] [place] [address] Dr. Sorin Yang LDL CALC NORMAL SEE BELOW Normal [facility] Comment on above: Result Comment: <100 mg/dl OPTIMAL 100 - 129 mg/dl NEAR OR ABOVE OPTIMAL 130 - 159 mg/dl BORDERLINE HIGH 160 - 189 mg/dl HIGH >190 mg/dl VERY HIGH Performed By: #### L IPID, CMP #### [facility] [address] [place] [address] Dr. Sorin Yang Triglyceride [Mass/Vol] 170 mg/dL Critically high <=150 [facility] Comment on above: Performed By: #### L IPID, CMP #### [facility] [address] [address] [address] Sorin Yang VLDL CALC 34.0 mg/dL Normal [facility] Comment on above: Performed By: #### L IPID, CMP #### [facility] [address] [address] [address] Sorin Yang PROF 14(COMP METB)on 022 Albumin [Mass/Vol] 4.2 g/dL Normal 3.5-5.0 [facility] Comment on above: Performed By: #### L IPID, CMP #### [facility] [address] [address] [address] Sorin Yang Albumin/Globulin [Mass ratio] 1.3 {ratio} Normal [facility] Comment on above: Performed By: #### L IPID, CMP #### [facility] [address] [place] [address] Dr. Sorin Yang ALP [Catalytic activity/Vol] 68 U/L Normal 38-126 [facility] Comment on above: Performed By: #### L IPID, CMP #### [facility] [address] [address] [address] Sorin Yang ALT [Catalytic activity/Vol] 26 U/L Normal 9-52 [facility] Comment on above: Performed By: #### L IPID, CMP #### [facility] [address] [address] [address] Sorin Yang Anion gap [Moles/Vol] 11.0 mmol/L Normal [facility] Comment on above: Performed By: #### L IPID, CMP #### [facility] [address] [place] [address] Dr. Sorin Yang AST [Catalytic activity/Vol] 10 U/L Critically low 14-36 [facility] Comment on above: Performed By: #### L IPID, CMP #### [facility] [address] [place] [address] Dr. Sorin Yang Bilirubin [Mass/Vol] 0.5 mg/dL Normal 0.2-1.3 [facility] Comment on above: Performed By: #### L IPID, CMP #### [facility] [address] [address] [address] Sorin Yang Calcium [Mass/Vol] 9.3 mg/dL Normal 8.4-10.2 [facility] Comment on above: Performed By: #### L IPID, CMP #### [facility] [address] [place] [address] Dr. Sorin Yang Chloride [Moles/Vol] 103 mmol/L Normal 98-107 [facility] Comment on above: Performed By: #### L IPID, CMP #### [facility] [address] [place] [address] Dr. Sorin Yang CO2 [Moles/Vol] 30.6 mmol/L Critically high 22.0-30.0 [facility] Comment on above: Performed By: #### L IPID, CMP #### [facility] [address] [place] [address] Dr. Sorin Yang Creatinine [Mass/Vol] 0.82 mg/dL Normal 0.52-1.04 [facility] Comment on above: Performed By: #### L IPID, CMP #### [facility] [address] [place] [address] Dr. Sorin Yang EGFR-AF CYPRIOT >60 Normal >=60 [facility] Comment on above: Performed By: #### L IPID, CMP #### [facility] [address] [place] [address] Dr. Sorin Yang EGFR-NON AF CYPRIOT >60 Normal >=60 [facility] Comment on above: Performed By: #### L IPID, CMP #### [facility] [address] [place] [address] Dr. Sorin Yang Globulin (S) [Mass/Vol] 3.3 g/dL Normal [facility] Comment on above: Performed By: #### L IPID, CMP #### [facility] [address] [place] [address] Dr. Sorin Yang Glucose [Mass/Vol] 109 mg/dL Critically high 74-106 [facility] Comment on above: Performed By: #### L IPID, CMP #### [facility] [address] [place] [address] Dr. Sorin Yang Potassium [Moles/Vol] 4.6 mmol/L Normal 3.4-5.0 [facility] Comment on above: Performed By: #### L IPID, CMP #### [facility] [address] [place] [address] Dr. Sorin Yang Protein [Mass/Vol] 7.5 g/dL Normal 6.1-8.2 [facility] Comment on above: Performed By: #### L IPID, CMP #### [facility] [address] [place] [address] Dr. Sorin Yang Sodium [Moles/Vol] 140 mmol/L Normal 137-145 [facility] Comment on above: Performed By: #### L IPID, CMP #### [facility] [address] [place] [address] Dr. Sorin Yang Urea nitrogen [Mass/Vol] 22.0 mg/dL Critically high 7.0-17.0 [facility] Comment on above: Performed By: #### L IPID, CMP #### [facility] [address] [place] [address] Dr. Sorin Yang Urea nitrogen/Creatinine [Mass ratio] 26.8 mg/mg Normal [facility] Comment on above: Performed By: #### L IPID, CMP #### [facility] [address] [place] [address] Dr. Sorin Graham 08-11-2020 TATUM Telephone (LORNE) TIFFANIE MILLER ([id number]) 1945 F Date Time Provider Department 08/11/20 CHARIS FAUSTIN (EL) LORNE During your visit today, we recorded the following information about you: Charis Faustin RN, RN 08/11/2020 11:53 AM Signed Received call from pt requesting lab results. Results given. Pt verbalizes understanding and states that she feels great and does not want to come in for her appts and will call if anything changes. Clerical: Please cancel pt's upcoming appts. Thank you. EL Castroy Manzo Sec 08/11/2020 12:01 PM Signed cxed appointments. Allergies As of Date: 08/11/2020 Noted Allergy Reaction PENICILLINS 02/12/2020 2 - Rash Date Reviewed: 05/09/2020 Reviewed by: Werner Ambrose - Fully Assessed Reason for Visit: Results [95] Appointment [186] Prescriptions as of 08/11/2020 Sig: HYDROCHLOROTHIAZIDE 25 MG TAB* q 24 HR. VITAMIN C ORAL Vitamin C bid CALCIUM CARBONATE 500 MG(1,25* Calcium 500 + D ASPIRIN 81 MG TABLET,DELAYED * q 24 HR. SIMVASTATIN 20 MG TABLET q 24 HR. Problem List As Of Date 08/11/2020 Noted Resolved Iron deficiency anemia [D50.9] 02/15/2020 Encounter Status:Closed by CHARIS FAUSTIN RN on 08/11/20 Normal [facility] Comp Metabolic Panelon 08-07 Albumin [Mass/Vol] 5.0 g/dL High 3.9-4.9 [facility] ALP [Catalytic activity/Vol] 63 U/L Normal 34-123 [facility] ALT [Catalytic activity/Vol] 18 U/L Normal 7-38 [facility] Anion gap [Moles/Vol] 9 mmol/L Normal 9-18 [facility] AST [Catalytic activity/Vol] 22 U/L Normal 13-35 [facility] Bilirubin [Mass/Vol] 0.6 mg/dL Normal 0.2-1.3 [facility] Calcium [Mass/Vol] 9.9 mg/dL Normal 8.5-10.2 [facility] Chloride [Moles/Vol] 101 mmol/L Normal 97-105 [facility] CO2 [Moles/Vol] 31 mmol/L High 22-30 [facility] Creatinine [Mass/Vol] 0.80 mg/dL Normal 0.58-0.96 [facility] eGFR- Amer. >60 Normal [facility] eGFR-All Other Races >60 Normal [facility] Comment on above: Result Comment: eGFR (Estimated GFR) Units of measure: mL/min/1.73 meters squared eGFR is derived from the reexpressed MDRD Study equation using the following parameters: serum creatinine, age, gender and race. The creatinine assay has been calibrated to be traceable to IDMS. An eGFR <60 mL/min/1.73m2 for >3 months is consistent with chronic kidney disease. Refer to KDOQI guidelines for clinical interpretation. In patients with unstable renal function, e.g. those with acute kidney injury, the eGFR may not accurately reflect actual GFR. Glucose [Mass/Vol] 106 mg/dL High 74-99 [facility] Comment on above: Result Comment: The [place] Diabetes Association (ADA) provides guidance for cutoff values for fasting glucose and random glucose. The ADA defines fasting as no caloric intake for at least 8 hours. Fasting plasma glucose results between 100 to 125 mg/dL indicate increased risk for diabetes (prediabetes). Fasting plasma glucose results greater than or equal to 126 mg/dL meet the criteria for diagnosis of diabetes. In the absence of unequivocal hyperglycemia, results should be confirmed by repeat testing. In a patient with classic symptoms of hyperglycemia or hyperglycemic crisis, random plasma glucose results greater than or equal to 200 mg/dL meet the criteria for diagnosis of diabetes. Reference: Standards of Medical Care in Diabetes 2016, [place] [employer] Association. Diabetes Care. 2016.39(Suppl 1). Potassium [Moles/Vol] 3.8 mmol/L Normal 3.7-5.1 [facility] Protein [Mass/Vol] 7.6 g/dL Normal 6.3-8.0 [facility] Sodium [Moles/Vol] 141 mmol/L Normal 136-144 [facility] Urea nitrogen [Mass/Vol] 22 mg/dL High 7-21 [facility] Ferritinon 08-07-2020 Ferritin [Mass/Vol] 195.0 ng/mL Normal 14.7-205.1 [facility] Comment on above: Performed By: #### I LARISA FERR #### [facility] [address] [address] Iron and TIBCon 08-07-2020 Iron [Mass/Vol] 132 ug/dL Normal 41-186 [facility] Comment on above: Performed By: #### I LARISA, FERR #### [facility] [address], [place] [id number] TIBC 333 ug/dL Normal 232-386 [facility] Comment on above: Performed By: #### I LARISA, FERR #### [facility] [address] [id number] Transferrin Saturatn 40 % Normal 15-57 [facility] Comment on above: Performed By: #### I LARISA, FERR #### [facility] [address] [id number] Remote CBCDIF (for [facility] use o nly)on 08-07-2020 Abs Baso 0.08 k/uL Normal <0.11 [facility] Abs Boundary 0.55 k/uL Normal <0.87 [facility] Abs Neut 3.49 k/uL Normal 1.45-7.50 [facility] Absolute nRBC <0.01 Normal <0.01 [facility] Basophils/100 WBC (Bld) 1.2 % Normal [facility] DTYPE Auto Diff Normal [facility] Eosinophils (Bld) [#/Vol] 0.15 10*3/uL Normal <0.46 [facility] Eosinophils/100 WBC (Bld) 2.3 % Normal [facility] Erythrocyte distribution width (RBC) [Ratio] 13.3 % Normal 11.5-15.0 [facility] Hematocrit (Bld) [Volume fraction] 42.3 % Normal 36.0-46.0 [facility] Hemoglobin (Bld) [Mass/Vol] 13.9 g/dL Normal 11.5-15.5 [facility] Lymphocytes (Bld) [#/Vol] 2.23 10*3/uL Normal 1.00-4.00 [facility] Lymphocytes/100 WBC (Bld) 34.3 % Normal [facility] MCH 30.1 pG Normal 26.0-34.0 [facility] MCHC (RBC) [Mass/Vol] 32.9 g/dL Normal 30.5-36.0 [facility] MCV (RBC) [Entitic vol] 91.6 fL Normal 80.0-100.0 [facility] Monocytes/100 WBC (Bld) 8.4 % Normal [facility] Neutrophils/100 WBC (Bld) 53.8 % Normal [facility] NRBCs 0.0 /100 WBC Normal 0 [facility] Platelet mean volume (Bld) [Entitic vol] 10.1 fL Normal 9.0-12.7 [facility] Platelets (Bld) [#/Vol] 244 10*3/uL Normal 150-400 [facility] RBC (Bld) [#/Vol] 4.62 10*6/uL Normal 3.90-5.20 [facility] WBC (Bld) [#/Vol] 6.51 10*3/uL Normal 3.70-11.00 [facility] Vital Signs Date Time Vital Sign Value Performing Clinician Facility 07-13-2023 09:52-0500 Body height 154.94 cm [facility] 07-13-2023 09:52-0500 Body mass index (BMI) [Ratio] 27 kg/m2 [facility] 07-13-2023 09:52-0500 Body temperature 97.3 [degF] [facility] 07-13-2023 09:52-0500 Body weight 64.86 kg [facility] 07-13-2023 09:52-0500 Diastolic blood pressure 67 mm[Hg] [facility] 07-13-2023 09:52-0500 Heart rate 82 /min [facility] 07-13-2023 09:52-0500 SaO2% (BldA) [Mass fraction] 98 % [facility] 07-13-2023 09:52-0500 Systolic blood pressure 127 mm[Hg] [facility] 07-06-2023 09:30-0500 Body height 154.94 cm Barb Thornton Other [facility] Other 07-06-2023 09:30-0500 Body mass index (BMI) [Ratio] 27.7 kg/m2 Barb Thornton Other [facility] Other 07-06-2023 09:30-0500 Body weight 66.5 kg Barb Thornton Other [facility] Other 07-06-2023 09:30-0500 Diastolic blood pressure 72 mm[Hg] Barb Thornton Other [facility] Other 07-06-2023 09:30-0500 Systolic blood pressure 140 mm[Hg] Barb Thornton Other [facility] Other 07-01-2023 10:45-0500 Body height 154.94 cm [facility] 07-01-2023 10:45-0500 Body weight 66.58 kg [facility] 07-01-2023 10:45-0500 Diastolic blood pressure 68 mm[Hg] [facility] 07-01-2023 10:45-0500 Systolic blood pressure 144 mm[Hg] [facility] 06-08-2023 09:00-0500 Body height 154.94 cm Barb Thornton Other [facility] 06-08-2023 09:00-0500 Body mass index (BMI) [Ratio] 27.73 kg/m2 Barb Thornton Other [facility] Other 06-08-2023 09:00-0500 Body temperature 99.3 [degF] Barb Thornton Other [facility] Other 06-08-2023 09:00-0500 Body weight 66.59 kg Barb Thornton Other [facility] Other 06-08-2023 09:00-0500 Body weight 66.58 kg [facility] 06-08-2023 09:00-0500 Diastolic blood pressure 62 mm[Hg] Barb Thornton Other [facility] 06-08-2023 09:00-0500 Systolic blood pressure 160 mm[Hg] Barb Thornton Other [facility] 03-14-2023 13:30-0400 Body height 154.94 cm Barb Thornton Other [facility] Other 03-14-2023 13:30-0400 Body mass index (BMI) [Ratio] 27.39 kg/m2 Barb Thornton Other [facility] Other 03-14-2023 13:30-0400 Body weight 65.77 kg Babr Thornton Other [facility] Other 03-14-2023 13:30-0400 Diastolic blood pressure 68 mm[Hg] Barb Thornton Other [facility] Other 03-14-2023 13:30-0400 Systolic blood pressure 128 mm[Hg] Barb Thornton Other [facility] Other 12-10-2022 11:00-0400 Body height 154.94 cm Barb Thornton Other [facility] Other 12-10-2022 11:00-0400 Body mass index (BMI) [Ratio] 26.83 kg/m2 Barb Thornton Other [facility] Other 12-10-2022 11:00-0400 Body weight 64.41 kg Barb Thornton Other [facility] Other 12-10-2022 11:00-0400 Diastolic blood pressure 70 mm[Hg] Barb Thornton Other [facility] Other 12-10-2022 11:00-0400 Systolic blood pressure 140 mm[Hg] Barb Thornton Other [facility] Other 10-29-2022 13:45-0400 Body height 154.94 cm Barb Thornton Other [facility] Other 10-29-2022 13:45-0400 Body mass index (BMI) [Ratio] 27.21 kg/m2 Barb Thornton Other [facility] Other 10-29-2022 13:45-0400 Body weight 65.32 kg Barb Thornton Other [facility] Other 10-29-2022 13:45-0400 Diastolic blood pressure 65 mm[Hg] Barb Thornton Other [facility] Other 10-29-2022 13:45-0400 Systolic blood pressure 159 mm[Hg] Barb Thornton Other [facility] Other 07-22-2022 15:00-0500 Body height 154.94 cm Barb Thornton Other [facility] Other 07-22-2022 15:00-0500 Body mass index (BMI) [Ratio] 27.77 kg/m2 Barb Thornton Other [facility] Other 07-22-2022 15:00-0500 Body temperature 100.2 [degF] Barb Thornton Other [facility] Other 07-22-2022 15:00-0500 Body weight 66.68 kg Barb Thornton Other [facility] Other 07-22-2022 15:00-0500 Diastolic blood pressure 72 mm[Hg] Barb Thornton Other [facility] Other 07-22-2022 15:00-0500 SaO2% (BldA) [Mass fraction] 98 % Barb Thornton Other [facility] Other 07-22-2022 15:00-0500 Systolic blood pressure 146 mm[Hg] Barb Thornton Other [facility] Other Encounters Encounter Date Encounter Type Care Provider Facility Start: 07-13-2023 End: 07-13-2023 ambulatory [facility] Work Phone: Start: 07-13-2023 End: 07-13-2023 Patient encounter procedure [facility] Work Phone: Start: 07-06-2023 End: 07-06-2023 ambulatory Barb Thornton Other [facility] Other Start: 07-06-2023 Office outpatient vi sit 15 minutes Barb Thornton [facility] Start: 07-01-2023 End: 07-01-2023 Patient encounter procedure [facility]- Start: 06-08-2023 End: 06-08-2023 ambulatory Barb Thornton Other [facility] Other Start: 06-08-2023 Office outpatient vi sit 15 minutes Barb Thornton [facility] Start: 06-08-2023 End: 06-08-2023 Patient encounter procedure [facility] Work Phone: Start: 03-14-2023 End: 03-14-2023 ambulatory Barb Thornton Other [facility] Other Start: 03-14-2023 Office outpatient vi sit 15 minutes Barb Thornton [facility] Start: 12-24-2022 End: 12-24-2022 ambulatory Barb Thornton Other [facility] Other Start: 12-24-2022 Telephone encounter Barb Thornton [facility] Start: 12-15-2022 End: 12-15-2022 ambulatory Barb Thornton Other [facility] Other Start: 12-15-2022 Telephone encounter Barb Thornton [facility] Start: 12-10-2022 End: 12-10-2022 ambulatory Barb Thornton Other [facility] Other Start: 12-10-2022 Office outpatient vi sit 15 minutes Barb Thornton [facility] Start: 10-29-2022 End: 10-29-2022 ambulatory Barb Thornton Other [facility] Other Start: 10-29-2022 Office outpatient vi sit 15 minutes Barb Thornton [facility] Start: 10-22-2022 End: 10-22-2022 ambulatory Barb Thornton Other [facility] Other Start: 10-22-2022 Telephone encounter Barb Thornton [facility] Start: 07-22-2022 End: 07-22-2022 ambulatory Barb Thornton Other [facility] Other Start: 07-22-2022 Office outpatient vi sit 15 minutes Barb Thornton [facility] Start: 04-16-2022 End: 04-17-[address] BARB THORNTON Facility:[facility] Start: 04-13-2022 Adult health examination Barb Thornton Other [facility] Other Start: 11-19-2021 End: 11-20-[address] BARB THORNTON Facility:[facility] Start: 06-10-2021 End: 06-11-[address] BARB THORNTON Facility:[facility] Start: 02-12-2020 End: 02-12-2020 Chart abstracting Werner Ambrose Work Phone: Hematology/Oncology Start: 02-11-2020 End: 02-11-2020 Patient encounter procedure External Provider [facility] Start: 02-11-2020 Results Only External Provider Exter nal-NonCCF Procedures Date Procedure Procedure Detail Performing Clinician Start: 02-11-2020 End: 02-11-2020 EXTERNAL LAB External Provider Plan of Treatment Date Care Activity Detail Author Start: 01-29-2020 Influenza vaccination INFLUENZA (#1) [facility] Start: 2010 ADVANCE DIRECTIVE DISCUSSION ADVANCE DIRECTIVE DISCUSSION [facility] Start: 2010 BONE DENSITY BONE DENSITY [facility] Start: 2010 PNEUMOVAX AGE 65 AND OVER WITH 5YR LOOKBACK (#1) PNEUMOVAX AGE 65 AND OVER WITH 5YR LOOKBACK (#1) [facility] Start: 1995 SHINGRIX VACCINE (1 of 2) MOSHER GRIX VACCINE (1 of 2) [facility] Start: 1995 Tuberculosis screening COLOREC BARB CANCER SCREENING,SEE MODIFIER [facility] Start: 1990 DIABETES SCREEN DIABETES SCREEN [facility] Start: 1990 LIPID SCREEN LIPID SCREEN [facility] Start: 1985 Mammography MAMMOGRAM [facility] Start: 1964 Urine microalbumin profile DTAP,TDAP,TD (1 - Tdap) [facility] Start: 1963 HEPATITIS C SCREENING HEPATITIS C [facility] XR Chest 2 Views [facility] Immunizations Immunization Date Immunization Notes Care Provider Fa cility 03-19-2020 influenza virus vaccine, split virus (incl. purified surface antigen) Barb Thornton Other [employer] [facility] Other 03-19-2020 influenza virus vaccine, unspecified formulation [facility] Payers Date Payer Category Payer Unknown [employer]PP[employer] [id number] 2019-Present Indemnity [id number] 2010 Medicare MEDICARE MEDICAR E A AND B [id number] 2010-Present [place] Medicare [id number] 1959 Self-pay 1959 Unknown [id number] 1945 Unknown [id number] 3 1945 Unknown [id number] 3 1945 Unknown [id number] 3 Unknown [id number] 3 Unknown [id number] 3 Social History Date Type Detail Facility Tobacco smoking status [facility] Unknown if ever smoked [facility] Sex Assigned At [facility] Start: 02-12-2020 Tobacco smoking status NHIS Unknown if ever smoked [facility] Sex Assigned At Sex Assigned At Bir th [employer] [facility] Other Start: 1945 Sex Assigned At Female F [facility] Evaluation note 07-06-2023 Note Date & Type Note Facility 07-06-2023 Evaluation note Encounter Date Diagnosis Assessment Notes Jun, Bronchitis (ICD-10 - J40) Take antibiotic as directed. If develop wheezing, chest tightness, itching, bad cough, blue skin color, seizures, swelling of face, lips, tongue, or throat report to ED. Jun, Ceruminosis, bilateral (ICD-10 - H61.23) Cerumen removed w waterpik and with instrumentati on. pt tolerated well it was successful. [facility] Other Evaluation note 06-08-2023 Note Date & Type Note Facility 06-08-2023 Evaluation note Encounter Date Diagnosis Assessment Notes May, Bronchitis (ICD-10 - J40) Take antibiotic as directed. If develop wheezing, chest tightness, itching, bad cough, blue skin color, seizures, swelling of face, lips, tongue, or throat report to ED. May, Ceruminosis, bilateral (ICD-10 - H61.23) removed some w lighted tool, tolerated somewhat well. encouraged further use of H2O2 at home to soften cerumen [facility] Other Evaluation note 03-14-2023 Note Date & Type Note Facility 03-14-2023 Evaluation note Encounter Date Diagnosis Assessment Notes Feb, Essential (primary) hypertension (ICD-10 - I10) Blood pressure remains well controlled at this time. Denies cardiac symptoms. Shows no signs or symptoms or poor control. Patient to continue with above medication and we will continue to monitor. Advised to pay attention to body and symptoms. Any developing patterns. Stay well hydrated. Feb, Other iron deficiency anemia (ICD-10 - D50.8) Continue present vitamins and supplements. [facility] Other Evaluation note 12-10-2022 Note Date & Type Note Facility 12-10-2022 Evaluation note Encounter Date Diagnosis Assessment Notes Nov, Thoracic spine pain (ICD-10 - M54.6) PT agrees to xray for consistent upper back pain. R/o fracture or bone issues. Nov, Essential (primary) hypertension (ICD-10 - I10) Continue present medication. Followup in 3 months. Discussed stress reduction. [facility] Other Evaluation note 10-29-2022 Note Date & Type Note Facility 10-29-2022 Evaluation note Encounter Date Diagnosis Assessment Notes Oct, Essential (primary) hypertension (ICD-10 - I10) new problem. start med, keep daily bps at home. RTC in 1 month [facility] Other Evaluation note 07-22-2022 Note Date & Type Note Facility 07-22-2022 Evaluation note Encounter Date Diagnosis Assessment Notes Jun, Bronchitis (ICD-10 - J40) Bronchitis: Care Instructions material was printed. Encourage fluids and rest. Symptoms should improve within the next 4-7 days. Use Bromfed DM as needed for cough and congestion. Do not use other OTC cold/cough medications with Bromfed DM. Use inhaler at least twice for the next 2 days, and then as needed for wheezing. Cough may linger after viral or bacterial infections; sometimes for weeks. Patient advised to go to ER immediately if experiencing shortness of breath or difficulty breathing. Patient verbalized understanding and agreement with treatment plan. [facility] Other Evaluation note Note Date & Type Note Facility Evaluation note No Information [employer] Other Evaluation note Note Date & Type Note Facility Evaluation note No assessment information availa [facility] Work Phone: History general Narrative - Reported Note Date & Type Note Facility History general Narrative - Reported Type Medical History Acute left lower quadrant pain Medical History BPV (benign positional vertigo) Medical History Essential hypertension Medical History Pernicious anemia Medical History Hyperlipidemia, mixed Surgical History GANGLION CYST - RIGHT WRIST Surgical History CATARACT EXTRACTION - BILATERAL Surgical History TONSILLECTOMY Surgical History Hospitalization History SEE SURGICAL HX [facility] Other Summary Purpose Family History Relationship Condition Age at Onset Recorded Date/T mike father Unknown Not Specified Unknown Advance Directives Advance Directive Response Recorded Date/ Time Advance Directives No June 9:13am Chief Complaint and Reason for Visit Chief Complaint Sick - Check Ears Cough Wheezing in Chest Additional Source Comments Source Comments (unrecognize d section and content) In the event this informatio n is protected by the Federal Confidentiality of Alcohol and Drug Abuse Patient Records regulations: The Federal rules restrict any use of the information to criminally investigate or prosecute any alcohol or drug abuse patient.[facility] the event this information is protected by the Federal Confidentiality of Alcohol and Drug Abuse Patient Records regulations: The Federal rules restrict any use of the information to criminally investigate or prosecute any alcohol or drug abuse patient.[facility] INFORMATION SOURCE (unrecogn ized section and content) DATE CREATED AUTHOR 06/09/2021 [facility] DATE CREATED AUTHOR AUTHOR'S MALGORZATA ATION 04/21/2022 [facility] REASON FOR VISIT (unrecogniz ed section and content) BRONCHITIS?messageBP5 WEEK F OLLOW UPmessagelabs3 month Follow upsick - check earsEars [facility] Teams (unrecognized sec tion and content) Team Status: Active Member Role Status Dates Barb Thornton MD Primary Care Provider Active Team Status: Inactive Member Role Status Dates Barb Thornton MD Attending Provider Active St art: June 08, 2023 End: June 08, 2023 Team Status: Inactive Member Role Status Dates Barb Thornton MD Attending Provider Active St art: July 01, 2023 End: July 01, 2023 Team Status: Inactive Member Role Status Dates Barb Thornton MD Primary Care Provide r, Attending Provider Active Start: July 13, 2023 End: July 13, 2023 Goals (unrecognized section and content) Goals may be documented in a n alternate section FOR RECORDS PERTAINING TO PATIENTS WHO ARE OR HAVE BEEN ENROLLED IN A CHEMICAL DEPENDENCY/SUBSTANCEABUSE PROGRAM, SOME INFORMATION MAY BE OMITTED. This clinical summary was aggregated from multiple sources. Caution should be exercised in using it in the provision of clinical care. This summary normalizes information from multiple sources, and as a consequence, information in this document may materially change the coding, format and clinical context of patient data. In addition, data may be omitted in some cases. CLINICAL DECISIONS SHOULD BE BASED ON THE PRIMARY CLINICAL RECORDS. [facility] [employer] [facility]. provides no warranty or guarantee of the accuracy or completeness of information in this document.
--- NOTE | 2023-07-24 10:10 | ECG_ITS ---
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
--- NOTE | 2023-07-24 10:19 | CT_ITS ---
The [address] [address] Patient Name: TIFFANIE TRIVEDI MRN: [id number] date: 1945 Sex: F Assigned Patient Location: ER Current Patient Location: ED.MAIN Accession/Order Number: [id number] Exam Date: 07/24/2023 10:27 Report Date: 07/24/2023 11:02 At the request of: PAT YOUNG Procedure: CT head/brain wo con EXAM: CT head/brain wo con HISTORY: dizziness and HTN COMPARISON: None. TECHNIQUE: CT head noncontrast. FINDINGS: No hemorrhage, edema or mass noted within the brain. Normal size ventricles, no mass effect or shift. No extra-axial fluid collection. Fluid seen throughout the left mastoid. No bony erosion or destruction in this area. Right mastoid clear. Minor sinus thickening without fluid. CT/CT head/brain wo con IMPRESSION: Brain is negative without hemorrhage mass or edema. Left mastoid fluid as noted above. Electronically authenticated by: JAI PRESTON Date: 07/24/2023 11:02
--- NOTE | 2023-07-24 10:27 | ED_ITS ---
HPI - Dizziness General Chief Complaint: Dizziness Stated Complaint: Dizziness Vomiting HYPERTENSION Time Seen by Provider: 07/24/23 10:09 Source: patient Mode of arrival: Wheelchair Limitations: no limitations History of Present Illness HPI Narrative: The patient presenting to us with a sensation of the room spinning that started this morning, she mentioned that she has been getting better from a upper respiratory tract infection as well as bronchitis, when she woke up this morning she noted that the room was spinning whenever she closes her eyes. She was still able to walk here after getting from the car, with no weakness. The patient have history of vertigo she tried the maneuver that she was instructed to do when she have vertigo and it did not work. Related Data Home Medications Medication Instructions Recorded Confirmed aspirin 81 mg chewable tablet 81 mg PO DAILY 12/18/22 12/18/22 (Children's Aspirin) losartan 50 mg tablet 50 mg PO QDAY 12/18/22 12/18/22 Previous Rx's Medication Instructions Recorded meclizine 12.5 mg tablet 12.5 mg PO TID PRN motion sickness 07/24/23 #10 tabs Allergies Allergy/AdvReac Type Severity Reaction Status Date / Time Unable to Assess Allergy Verified 07/24/23 10:07 Review of Systems ROS Status of ROS 10 or more systems reviewed and unremark able except as noted in history and below [facility] Social History Smoking status: Never smoker Exam Narrative Exam Narrative: Nurses notes and vital signs reviewed and patient is not hypoxic. General: Well-appearing and in no apparent distress. Skin: Warm, dry, no pallor noted. No rash. Head: Normocephalic, atraumatic. Neck: Supple, non-tender. Eye: Pupils are equal, round and EOMI. No scleral icterus. Ears, Nose, Mouth, and Throat: TM are clear, no nasal mucosal hypertrophy. Oral mucosa is moist, no posterior oropharynx erythema, uvula is mid-line Cardiovascular: Regular Rate and Rhythm without murmur, gallop or rub. Respiratory: No accessory muscle use or respiratory distress. Lungs are clear to auscultation, no wheezing, rales or rhonchi Chest Wall: no tenderness Back: No midline thoracic or lumbar vertebral tenderness. No CVA tenderness Musculoskeletal: normal ROM, no calf or popliteal tenderness, no lower extremity edema/swelling GI: Abdomen is soft, non-distended. Normal bowel sounds. No masses appreciated. No tenderness to palpation. No rebound, guarding, or rigidity noted. Neurological: A&O x4. No cranial nerve dysfunction observed. No truncal ataxia. Moves all extremities. Sensation intact. Psychiatric: Cooperative and interactive. Normal mood and affect. Constitutional Vital Signs, click to edit/add: Last Vital Signs Temp 98.5 F 07/24/23 10:07 Pulse 53 L 07/24/23 11:00 Resp 17 07/24/23 11:00 BP 188/79 H 07/24/23 10:17 Pulse Ox 100 07/24/23 10:12 O2 Del Method Room Air 07/24/23 10:07 Course Vital Signs Vital signs: Vital Signs Temperature 98.5 F 07/24/23 10:07 Pulse Rate 62 07/24/23 10:07 Respiratory Rate 16 07/24/23 10:07 Blood Pressure 207/75 H 07/24/23 10:07 Pulse Oximetry 99 07/24/23 10:07 Oxygen Delivery Method Room Air 07/24/23 10:07 Temperature 98.5 F 07/24/23 10:07 Pulse Rate 53 L 07/24/23 11:00 Respiratory Rate 17 07/24/23 11:00 Blood Pressure 188/79 H 07/24/23 10:17 Pulse Oximetry 100 07/24/23 10:12 Oxygen Delivery Method Room Air 07/24/23 10:07 MDM - Dizziness MDM Narrative Medical decision making narrative: The patient EKG in the ER showing sinus rhythm with a heart rate of [address] elevation or depression. The patient CBC chemistry as well as troponin are negative and the CT head showed no acute significant pathology. The patient was already feeling better by the time she got treated with Benadryl for vertigo. Right now the patient blood pressure is still elevated at 180 I did mention to her that she have a history of hypertension she is to restart the losartan but she will measure her blood pressure daily in case of elevated blood pressure she have to address that with her primary care doctor as well as well as restarting her medication. She was instructed about the importance of starting blood pressure medication to avoid stroke and other comorbidities. The patient was discharged home with meclizine as supportive care The patient is to follow up with primary care physician in next 2-3 days or to return to the emergency department should any of the signs or symptoms worsen or new symptoms develop. The patient agrees with the following Diagnosis and Treatment plan and the patient will be discharged home. Lab Data Labs: Lab Results 07/24/23 Range/Units 10:18 WBC 5.8 (4.0-11.0) 10^3/uL RBC 4.65 (4.20-5.40) 10^6/uL Hgb 13.3 (12.0-16.0) g/dL Hct 41.6 (36.0-48.0) % MCV 89.5 (81.0-99.0) fL MCH 28.6 (26.7-34.0) pg MCHC 32.0 (29.9-35.2) g/dL RDW 13.8 (11.0-15.0) % Plt Count 240 (150-450) 10^3/uL MPV 10.3 (9.5-13.5) fL Neut % (Auto) 75.5 H (43.0-75.0) % Lymph % (Auto) 14.6 L (20.5-60.0) % [place] % (Auto) 6.8 (1.7-12.0) % Eos % (Auto) 2.3 (0.9-7.0) % Baso % (Auto) 0.5 (0.2-2.0) % Neut # (Auto) 4.4 (1.4-6.5) 10^3/uL Lymph # (Auto) 0.8 L (1.2-3.8) 10^3/uL [place] # (Auto) 0.4 (0.3-0.8) 10^3/uL Eos # (Auto) 0.1 (0.0-0.7) 10^3/uL Baso # (Auto) 0.0 (0.0-0.1) 10^3/uL Abs Immat Gran (auto) 0.02 (0.00-0.03) 10^3/uL Imm/Tot Granulo (auto) 0.3 (0.0-0.5) % Sodium 140 (136-145) mmol/L Potassium 3.9 (3.5-5.1) mmol/L Chloride 104 (98-107) mmol/L Carbon Dioxide 28.7 (21.0-32.0) mmol/L Anion Gap 11.2 BUN 15.0 (7.0-18.0) mg/dL Creatinine 0.84 (0.55-1.02) mg/dL Est GFR ( Amer) >60 (>=60) Est GFR (Non-Af Amer) >60 (>=60) BUN/Creatinine Ratio 17.9 Glucose 138 H (74-106) mg/dL Calcium 8.9 (8.5-10.1) mg/dL Magnesium 2.0 (1.8-2.4) mg/dL Total Bilirubin 0.4 (0.2-1.0) mg/dL AST 17 (15-37) U/L ALT 22 (14-59) U/L Alkaline Phosphatase 71 (46-116) U/L Troponin I High Sens 6.2 (4.0-51.3) pg/mL Total Protein 7.7 (6.4-8.2) g/dL Albumin 3.8 (3.4-5.0) g/dL Globulin 3.9 g/dL Albumin/Globulin Ratio 1.0 Discharge Plan Discharge Chief Complaint: Dizziness Clinical Impression: Hypertensive urgency, Vertigo Patient Disposition: Home, Self-Care Time of Disposition Decision: 11:22 Condition: Good Prescriptions / Home Meds: New meclizine 12.5 mg tablet 12.5 mg PO TID PRN (Reason: motion sickness) Qty: 10 0RF No Action losartan 50 mg tablet 50 mg PO QDAY aspirin [Children's Aspirin] 81 mg tablet,chewable 81 mg PO DAILY Instructions: Vertigo (ED) Stand Alone Forms: Portal Instructions Referrals: Barb Thornton MD [Primary Care Provider] - 1 week
[2023-07-24 10:29] LABS: Basophils Percent Auto 0.5 % (0.2-2.0); Eosinophils Absolute Auto 0.1 10^3/uL (0.0-0.7); Eosinophils Percent Auto 2.3 % (0.9-7.0); Hematocrit 41.6 % (36.0-48.0); Hemoglobin 13.3 g/dL (12.0-16.0); Immature Granulocytes Abs Auto 0.02 10^3/uL (0.00-0.03); Immature Granulocytes Pct Auto 0.3 % (0.0-0.5); Lymphocytes Absolute Auto 0.8 10^3/uL (1.2-3.8); Lymphocytes Percent Auto 14.6 % (20.5-60.0); Mean Corpuscular Hemoglobin 28.6 pg (26.7-34.0); Mean Corpuscular Volume 89.5 fL (81.0-99.0); Mean Platelet Volume 10.3 fL (9.5-13.5); Monocytes Absolute Auto 0.4 10^3/uL (0.3-0.8); Monocytes Percent Auto 6.8 % (1.7-12.0); Neutrophils Absolute Auto 4.4 10^3/uL (1.4-6.5); Neutrophils Percent Auto 75.5 % (43.0-75.0); Platelet Count 240 10^3/uL (150-450); Red Blood Count 4.65 10^6/uL (4.20-5.40); Red Cell Distribution Width 13.8 % (11.0-15.0); White Blood Count 5.8 10^3/uL (4.0-11.0)
[2023-07-24 10:48] LABS: Alanine Aminotransferase 22 U/L (14-59); Albumin Level 3.8 g/dL (3.4-5.0); Alkaline Phosphatase 71 U/L (46-116); Anion Gap 11.2; Aspartate Amino Transferase 17 U/L (15-37); BUN Creatinine Ratio 17.9; Bilirubin Total 0.4 mg/dL (0.2-1.0); Calcium 8.9 mg/dL (8.5-10.1); Carbon Dioxide 28.7 mmol/L (21.0-32.0); Chloride 104 mmol/L (98-107); Estimated GFR (African America >60 (>=60); Estimated GFR (Non-African Ame >60 (>=60); Globulin 3.9 g/dL; Glucose 138 mg/dL (74-106); Potassium 3.9 mmol/L (3.5-5.1); Sodium 140 mmol/L (136-145); Total Protein 7.7 g/dL (6.4-8.2)
[2023-07-24 10:50] LABS: Troponin I High Sensitivity 6.2 pg/mL (4.0-51.3)
[2023-07-24] MEDS: DIPHENHYDRAMINE HCL 50 MG/ML (1ML) VIAL 12.5 MG IV (10:56)
== END 2023-07-24 11:45 | disposition home or self-care (01) ==
PROVIDERS: Emergency Provider Emergency Medicine; PCP Family Medicine
DX: I16.0 Hypertensive urgency (principal); R42 Dizziness and giddiness; I10 Essential (primary) hypertension; Z79.82 Long term (current) use of aspirin
CPT/HCPCS: 36415; 70450; 80053; 83735; 84484; 85025; 93005; 96374; 99285; J1200

== ENCOUNTER 2023-07-28 10:53 | Outpatient (RCR) | payer BC, SELFPAY | END 2023-08-15 11:52 | disposition home or self-care (01) | LOC: PT 10:53 | PROVIDERS: PCP Family Medicine; Visit Provider Family Medicine | DX: R42 Dizziness and giddiness (principal); R52 Pain, unspecified | CPT/HCPCS: 97162; 97530 ==